=== PATIENT | female | born 1955 | race Caucasian/White ===

== ENCOUNTER 2020-06-18 19:17 | Emergency (ER) | payer MEDICARE ==
[~2020-06-18] VITALS: Ht 167.6 cm; Wt 83.5 kg
[~2020-06-18 19:17] MED LIST: GLUCOPHAGE XL500 MG PO; MVI; Z.0.ATENOLOL25 MG PO; Z.0.B-121000 MCG IM; Z.0.CYMBALTA60 MG PO; Z.0.LEVAQUIN500 MG PO; Z.0.NEURONTIN300 MG PO; Z.0.ONGLYZA5 MG PO; Z.0.PREVACID30 MG PO; Z.0.WELLBUTRIN SR150 PO
[2020-06-18] MEDS ORDERED: PANTOPRAZOLE 40 MG 10ML VIAL IV STA (20:41)
[2020-06-18] MEDS ORDERED: ONDANSETRON HCL INJ 2MG/ML 2ML 2 MG/ML VIAL IV STA (20:41)
[2020-06-18] MEDS ORDERED: ASPIRIN 81 MG CHEW TAB PO ONE (20:45)
[2020-06-18] MEDS ORDERED: SODIUM CHLORIDE 0.9% 1000ML 1,000 ML IV ONE ×2 (20:45→23:00)
[2020-06-18 20:59] LABS: BASOPHILS % 0.3 % (0.0-1.0); EOSINOPHILS % 0.2 % (0.0-6.0); HEMATOCRIT 31.1 % (34.2-44.1); HEMOGLOBIN 9.3 g/dL (12.0-16.0); LYMPHOCYTES # (AUTO) 1.3 (1.0-3.2); LYMPHOCYTES % 10.5 % (18.0-39.1); MEAN CORPUSCULAR HEMOGLOBIN 27.3 pg (28-32); MEAN CORPUSCULAR HGB CONC 29.9 g/dL (31-35); MEAN CORPUSCULAR VOLUME 91.2 fL (81-99); MONOCYTES # (AUTO) 0.6 (0.2-0.8); MONOCYTES % 5.1 % (4.4-11.3); NEUTROPHILS # (AUTO) 9.9 (2.1-6.9); NEUTROPHILS % 83.2 % (38.7-80.0); PLATELET COUNT 476 x10e3/uL (140-360); RED BLOOD COUNT 3.41 x10e6/uL (3.6-5.1); RED CELL DISTRIBUTION WIDTH 15.1 % (11.7-14.4)
[2020-06-18 21:17] LABS: AMYLASE 36 U/L (25-125); LIPASE 17 U/L (8-78)
[2020-06-18 21:23] LABS: ALBUMIN 3.3 g/dL (3.5-5.0); ANION GAP 22.2 mmol/L (8-16); CALCIUM 9.2 mg/dL (8.4-10.2); CREATININE, SERUM 1.2 mg/dL (0.57-1.11); POTASSIUM 4.2 mmol/L (3.5-5.1)
[2020-06-18 21:29] LABS: CREATINE KINASE MB 1.7 ng/mL (0-5.0)
[2020-06-18] MEDS ORDERED: IOPAMIDOL 370 MG/ML 200 ML INFUS..BTL INJ ONE (21:44)
[2020-06-18] MEDS ORDERED: SODIUM CHLORIDE 0.9% 50ML 50 ML ONE (21:44)
[2020-06-18 23:42] LABS: CLARITY,URINE CLEAR (CLEAR); COLOR,URINE YELLOW (YELLOW); KETONES,URINE TRACE (NEGATIVE); LEUKOCYTE ESTERASE ,URINE TRACE (NEGATIVE); NITRITE,URINE NEGATIVE (NEGATIVE); PROTEIN,URINE DIPSTICK NEGATIVE (NEGATIVE); URINE UROBILINOGEN 0.2 mg/dL (0.2 - 1)
[2020-06-18 23:50] LABS: BACTERIA,URINE FEW /HPF; EPITHELIAL CELLS,URINE MODERATE /LPF; RBC,URINE 0-5 /HPF (0-5)
[2020-06-19 01:26] LABS: ANION GAP 15.5 mmol/L (8-16); BLOOD UREA NITROGEN 50 mg/dL (7-26); BUN/CREATININE RATIO 60 (6-25); CALCIUM 8.5 mg/dL (8.4-10.2); CARBON DIOXIDE 21 mmol/L (22-29); CHLORIDE 110 mmol/L (98-107); CREATININE, SERUM 0.84 mg/dL (0.57-1.11); EST GLOMERULAR FILTRATION RATE > 60 ML/MIN (60-); GLUCOSE 176 mg/dL (74-118); POTASSIUM 4.5 mmol/L (3.5-5.1); SODIUM 142 mmol/L (136-145)
[2020-06-19 03:38] VITALS: BP 134/78
== END 2020-06-19 03:00 | disposition home or self-care (01) ==
LOC: ER 20:30
DX: R11.2 Nausea with vomiting, unspecified (principal); R10.10 Upper abdominal pain, unspecified; K29.70 Gastritis, unspecified, without bleeding; K42.9 Umbilical hernia without obstruction or gangrene; Z96.651 Presence of right artificial knee joint
CPT/HCPCS: 36415; 74177; 80048; 80053; 81001; 82150; 82550; 82553; 82948; 83690; 84484; 85025; 93005; 99284; C9113; J2405; J7030; Q9967